=== PATIENT | female | born 2000 | race Hispanic/Latino ===

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

== ENCOUNTER 2022-04-13 18:59 | Observation (INO) | payer MEDICAID ==
[~2022-04-13] VITALS: Ht 152.4 cm; Wt 61.2 kg
[2022-04-13] MEDS ORDERED: LACTATED RINGERS 1000ML IV PRN (20:30)
[2022-04-13 20:48] LABS: APPEARANCE,URINE CLEAR (CLEAR); BILIRUBIN,URINE NEGATIVE (NEGATIVE); COLOR,URINE LIGHT-YELLOW (YELLOW); GLUCOSE, URINE (UA) NEGATIVE (NEGATIVE); KETONES,URINE NEGATIVE (NEGATIVE); LEUKOCYTE ESTERASE ,URINE 250 Leu/uL (NEGATIVE); NITRATE,URINE NEGATIVE (NEGATIVE); OCCULT BLOOD,URINE NEGATIVE (NEGATIVE); PROTEIN,URINE NEGATIVE (NEGATIVE); UROBILINOGEN,URINE 3 mg/dL (0.2-1.0)
[2022-04-13 20:59] LABS: MUCUS,URINE RARE LPF (None Seen); RBC,URINE 0-1 /HPF (0-1); SQUAMOUS EPITHELIAL CELL,UR MOD /HPF (0-2)
[2022-04-13 21:21] VITALS: BP 122/77
[2022-04-13] MEDS: LACTATED RINGERS 1000ML IV SCH (21:21)
[2022-04-13] MEDS ORDERED: ACETAMINOPHEN 500 MG TABLET ONE ×2 (21:48)
[2022-04-13] MEDS ORDERED: AZITHROMYCIN 250 MG TABLET PO ONE (22:00)
[2022-04-13] MEDS: GUAIFENESIN-CODEINE 5 ML SYRUP PO PRN (22:27)
[2022-04-13] MEDS: LACTATED RINGERS 1000ML 1,000 ML IV SCH (22:28)
[2022-04-14] MEDS ORDERED: ONDANSETRON 4MG INJ IVP PRN (01:30)
[2022-04-14] MEDS: GUAIFENESIN-CODEINE 5 ML SYRUP PO PRN (01:40)
[2022-04-14] MEDS: ACETAMINOPHEN 500 MG TABLET PO PRN ×2 (03:51→10:26)
[2022-04-14] MEDS: LACTATED RINGERS 1000ML 1,000 ML IV SCH (05:44)
[2022-04-14] MEDS ORDERED: TERBUTALINE SULFATE VIAL 1MG/ML SQ PRN (07:45)
[2022-04-14] MEDS: CELESTONE SOLUSPAN 6 MG/ML 5ML VIAL IM SCH ×3 (07:46→20:45)
[2022-04-14 08:39] LABS: BASOPHILS % (AUTO) 0.3 % (0.0-5.0); EOSINOPHILS % (AUTO) 0.9 % (0.0-8.0); HEMATOCRIT 24.4 % (36-48); LYMPHOCYTES % (AUTO) 8.8 % (21.0-51.0); MEAN CORPUSCULAR HEMOGLOBIN 24.7 pg (27.0-33.0); MEAN CORPUSCULAR HGB CONC 31.1 g/dL (32.0-36.0); MEAN CORPUSCULAR VOLUME 79.2 fL (80-100); NEUTROPHILS % (AUTO) 83.1 % (40.0-77.0); PLATELET COUNT (AUTO) 177 K/uL (130-400); RED BLOOD CELL COUNT(AUTO) 3.08 MIL/uL (4.00-5.50); RED CELL DISTRIBUTION WIDTH 18.3 % (11.0-15.5); WHITE BLOOD COUNT (AUTO) 7.5 K/uL (4.8-10.8)
[2022-04-14 08:47] LABS: CREATININE 0.6 mg/dL (0.5-1.5); POTASSIUM 3.3 mmol/L (3.5-5.1); TOTAL PROTEIN, SERUM 6.4 g/dL (6.0-8.3)
[2022-04-14] MEDS ORDERED: BENZOCAINE/MENTH/CETYLPYRD CL 1 EACH LOZENGE MM PRN (10:00)
[2022-04-14 10:18] LABS: % IRON SATURATION 6.9 % (22-44)
[2022-04-14] MEDS ORDERED: CEFTRIAXONE 1G VIAL ONE (15:29)
[2022-04-14] MEDS ORDERED: CEFTRIAXONE 1G VIAL IVP SCH (15:30)
[2022-04-14] MEDS ORDERED: MAGNESIUM 2GM PREMIX 50ML 50 ML IV PRN (15:30)
[2022-04-14] MEDS ORDERED: POTASSIUM CHLORIDE 20MEQ/100ML 100 ML IV PRN (15:30)
[2022-04-14] MEDS ORDERED: LIDOCAINE HCL-MPF 1% 2ML VIAL IV PRN (15:30)
[2022-04-14] MEDS ORDERED: KCL 20 MEQ ERTAB PO PRN (15:30)
[2022-04-14] MEDS: POTASSIUM CHLORIDE 10% ELIXIR 20 MEQ/15 ML UDCUP PO PRN ×3 (16:35→20:45)
[2022-04-14] MEDS: LACTATED RINGERS 1000ML IV SCH (17:44)
[2022-04-14] MEDS ORDERED: AZITHROMYCIN 250 MG TABLET PO SCH (22:00)
[2022-04-15 05:57] LABS: HEMATOCRIT 25.8 % (36-48); LYMPHOCYTES % (AUTO) 9.7 % (21.0-51.0); MEAN CORPUSCULAR HEMOGLOBIN 24.6 pg (27.0-33.0); MEAN CORPUSCULAR HGB CONC 30.6 g/dL (32.0-36.0); MEAN CORPUSCULAR VOLUME 80.4 fL (80-100); MONOCYTES % (AUTO) 1.1 % (3.0-13.0); NEUTROPHILS % (AUTO) 88.4 % (40.0-77.0); PLATELET COUNT (AUTO) 205 K/uL (130-400); RED BLOOD CELL COUNT(AUTO) 3.21 MIL/uL (4.00-5.50); RED CELL DISTRIBUTION WIDTH 18.7 % (11.0-15.5); WHITE BLOOD COUNT (AUTO) 8.7 K/uL (4.8-10.8)
[2022-04-15 06:26] LABS: ALBUMIN 2.3 g/dL (3.5-5.0); POTASSIUM 4.3 mmol/L (3.5-5.1); TOTAL PROTEIN, SERUM 7.1 g/dL (6.0-8.3)
[2022-04-15 06:37] LABS: CREATININE 0.5 mg/dL (0.5-1.5); MAGNESIUM 2.1 mg/dL (1.80-2.40)
[2022-04-15] MEDS ORDERED: FERROUS SULFATE 325 MG TABLET.DR PO SCH (09:00)
[2022-04-15] MEDS ORDERED: ASCORBIC ACID 500 MG TAB PO SCH (09:00)
[2022-05-10] MEDS ORDERED: FERS325 PO (18:21)
[2022-05-10] MEDS ORDERED: PREN-226 PO (18:21)
[2022-05-11] MEDS ORDERED: IBUP-2088 PO (12:09)
== END 2022-04-15 10:25 | disposition home or self-care (01) ==
LOC: EDH 18:59 → LDH 19:00
PROVIDERS: ADMIT Internal Medicine; ATTEND Internal Medicine
DX: O98.513 Other viral diseases complicating pregnancy, third trimester (principal); U07.1 COVID-19; O23.43 Unspecified infection of urinary tract in pregnancy, third trimester; O99.513 Diseases of the respiratory system complicating pregnancy, third trimester; J02.9 Acute pharyngitis, unspecified; Z3A.33 33 weeks gestation of pregnancy
CPT/HCPCS: 96361 ×5; 87088; 87880; 87804 ×2; 81001; 87635; 96372; 96365; 96375; 83540; 83550; 80053 ×2; 85025 ×2; 85378; 36415 ×2; 83735; G0378 ×39; G0379; J3475; J0702; J3105; J0696; J2405; 96360

== ENCOUNTER 2023-04-05 19:21 | Observation (INO) | payer MEDICAID ==
[~2023-04-05] VITALS: Ht 152.4 cm; Wt 61.7 kg
[~2023-04-05 19:21] MED LIST: FERS325 PO; PREN-226 PO
[2023-04-05 19:29] VITALS: BP 111/68; PULSE 90; RESP 16
[2023-04-05 20:03] LABS: ADD UA MICROSCOPIC YES; APPEARANCE,URINE CLEAR (CLEAR); BILIRUBIN,URINE NEGATIVE (NEGATIVE); COLOR,URINE YELLOW (YELLOW); GLUCOSE, URINE (UA) NEGATIVE (NEGATIVE); KETONES,URINE NEGATIVE (NEGATIVE); LEUKOCYTE ESTERASE ,URINE 250 Leu/uL (NEGATIVE); NITRATE,URINE NEGATIVE (NEGATIVE); OCCULT BLOOD,URINE NEGATIVE (NEGATIVE); PH,URINE 6.5 (5.0-8.0); PROTEIN,URINE 20 mg/dL (NEGATIVE); UROBILINOGEN,URINE 3 mg/dL (0.2-1.0)
[2023-04-05 20:05] LABS: BACTERIA,URINE RARE /HPF (None Seen); MUCUS,URINE RARE LPF (None Seen); SQUAMOUS EPITHELIAL CELL,UR FEW /HPF (0-2)
== END 2023-04-05 20:45 | disposition home or self-care (01) ==
LOC: EDH 19:21 → LDH 19:48
PROVIDERS: ADMIT Obstetrics & Gynecology; ATTEND Obstetrics & Gynecology
DX: O26.893 Other specified pregnancy related conditions, third trimester (principal); R10.9 Unspecified abdominal pain; O99.891 Other specified diseases and conditions complicating pregnancy; M54.9 Dorsalgia, unspecified; Z3A.35 35 weeks gestation of pregnancy
CPT/HCPCS: 87088; 81001; G0379; G0378

== ENCOUNTER 2024-08-11 13:25 | Emergency (ER) | payer SELFPAY ==
[~2024-08-11] VITALS: Ht 152.4 cm; Wt 59.0 kg
--- NOTE | 2024-08-11 13:37 | ERN ---
ED Note History of Present Illness Stated Complaint: SORE THROAT,MULTIPLE Chief Complaint: Headache Time Seen by MD: 13:32 Dictation: PATIENT IS A 24-YEAR-OLD FEMALE HERE WITH COMPLAINTS OF A GENERALIZED HEADACHE AND SORE THROAT WITH BODY ACHES ONSET YESTERDAY. NO FEVER NO CHILLS NO NAUSEA VOMITING. NO LOSS OF TASTE OR SMELL DOES NOT HAVE A PRIMARY CARE DOCTOR. SHE HAS NOT TAKEN ANYTHING PRIOR TO ARRIVAL FOR PAIN. Allergies: Coded Allergies: No Known Drug Allergies (Unverified Allergy, Unknown, 04/13/22) Home Meds Reported Medications Ferrous Sulfate (Ferrous Sulfate) 325 Mg (65 Mg Iron) Ectab, 325 MG PO DAILY, TAB.EC 05/10/22 Vit No.179/Iron/Folic ( Tablet) 28 Mg Iron-800 Mcg Tablet, 1 EACH PO DAILY, TAB 05/10/22 Past Medical History Past Medical History: No Pertinent History Surgical History: None Surgical History Other: LEFT LUMP REMOVED FROM BREAST 2019 : 4 Para: 3 Aborts: 0 RN Note Reviewed/Agreed w/PFSH: Yes Review of System Dictation CONSTITUTIONAL: NEGATIVE EXCEPT FOR HPI HEAD/FACE: NEGATIVE EXCEPT FOR HPI EENT: NEGATIVE EXCEPT FOR HPI SORE THROAT RESPIRATORY: NEGATIVE EXCEPT FOR HPI GASTROINTESTINAL/ABDOMINAL: NEGATIVE EXCEPT FOR HPI GENITOURINARY: NEGATIVE EXCEPT FOR HPI MUSCULOSKELETAL: NEGATIVE EXCEPT FOR HPI INTEGUMENTARY: NEGATIVE EXCEPT FOR HPI NEUROLOGICAL/PSYCH: NEGATIVE EXCEPT FOR HPI HEMATOLOGIC/LYMPHATIC: NEGATIVE EXCEPT FOR HPI ALL SYSTEMS NEGATIVE, EXCEPT NOTED ABOVE. 13 POINT REVIEW OF SYSTEMS ASSESSED AND ALL NEGATIVE EXCEPT FOR ABOVE. Initial Vital Sign VS Vital Signs Date Time Temp Pulse Resp B/P (MAP) Pulse Ox O2 Delivery O2 Flow Rate FiO2 08/11/24 13:33 98.1 86 16 119/73 97 Room Air Physical Exam Dictation VITAL SIGNS REVIEWED GENERAL APPEARANCE: ALERT, ORIENTED X 3, NO ACUTE DISTRESS, WELL DEVELOPED, NOURISHED. HEAD AND FACE: NON-TRAUMATIC. EYES: PERRL, PINK CONJUNCTIVAS, EYELID NO TRAUMA, ANTERIOR CHAMBER WITH ARCUS SENILIS. EARS: PINNAS INTACT AND NO SIGNS OF TRAUMA OR ERYTHEMA EAR CANALS CLEAR AND NO DISCHARGE TM NO ERYTHEMA NOSE: CLEAR DISCHARGE, NO BLEEDING. OROPHARYNX: MOUTH NORMAL, TONGUE PINK, PHARYNX CLEAR,NO ERYTHEMA, TONSILS NO EXUDATES, NO ABSCESSES NOTED, MUCOUS MEMBRANE MOIST NECK: SUPPLE, NON-TENDER, NO THYROMEGALY, NO MASSES, NO JVD, NO BRUITS BREAST:DEFERRED CHEST:NO TENDERNESS, NO CREPITUS, NO PARADOXICAL MOVEMENT, NO RETRACTIONS LUNGS:CLEAR, WELL-VENTILATED, SYMMETRIC, NO RALES, NO WHEEZING, NO RHONCHI, NO STRIDOR, GOOD BREATH SOUNDS BILATERALLY HEART: REGULAR RATE, REGULAR RHYTHM, NO MURMUR, NO GALLOPS VASCULAR: NO PERIPHERAL EDEMA, ABDOMEN: SOFT, POSITIVE BOWEL SOUNDS, NONDISTENDED, NO GUARDING, NONTENDER, NO REBOUND, NO MASSES NO HEPATOMEGALY, NO SPLENOMEGALY, NO LOPEZ'S SIGN, NO HERNIAS. RECTAL: DEFERRED GENITAL: DEFERRED NEUROLOGICAL: NORMAL SPEECH, MOTOR FUNCTION INTACT, SENSORY FUNCTION INTACT MUSCULOSKELETAL: NECK NONTENDER, FULL RANGE OF MOTION, BACK NONTENDER, FULL RANGE OF MOTION, EXTREMITIES: NONTENDER, FULL RANGE OF MOTION SKIN: COLOR PINK, DRY, NO TURGOR, NO RASH, NO LACERATIONS, NO ABRASIONS, NO CONTUSIONS. LYMPHATIC: DEFERRED Results (Laboratory/Radiology) Laboratory/Radiology Laboratory Tests Test 08/11/24 14:02 SARS-CoV-2 Antigen (Rapid) POSITIVE FOR SARS AG Group A Streptococcus Rapid negative (NEGATIVE) Labs Reviewed?: Yes ED Course ED Course Orders Procedure Category Date Status Time Acetaminophen 500mg PHA 08/11/24 In Process Tab (Tylenol 500mg T 14:00 Rapid (Group A Strep) LAB 08/11/24 Complete 13:35 Covid19 (Sars Antigen LAB 08/11/24 Complete Rapid) 13:35 Current Medications Medications (Trade) Dose Ordered Sig/Phil Route PRN Reason Start Time Stop Time Status Last Admin Dose Admin Acetaminophen (TYLenol 500MG TAB) 1,000 mg ONCE PO 08/11/24 14:00 08/11/24 18:00 08/11/24 14:07 Vital Signs Date Time Temp Pulse Resp B/P (MAP) Pulse Ox O2 Delivery O2 Flow Rate FiO2 08/11/24 13:33 98.1 86 16 119/73 97 Room Air Medical Decision Making MDM DISCHARGE MAKING BASED ON SWABS FOR FLU COVID AND STREP. PATIENT IS SARS COVID POSITIVE IS HER SON WHO IS WITH HER ALSO DISCHARGED HOME WITH SUPPORTIVE CARE DX & DISP Disposition: Discharge Departure Impression: Primary Impression: COVID-19 virus infection Condition: Stable Additional Instructions: FOLLOW-UP WITH PRIMARY CARE PROVIDER IN 1 TO 2 DAYS. TAKE MEDICATIONS DIRECTED HERE IN THE EMERGENCY ROOM. OKAY TO CONTINUE HOME MEDICATIONS UNLESS OTHERWISE DISCUSSED DURING YOUR VISIT IN THE EMERGENCY ROOM TODAY. RETURN TO YOUR NEAREST EMERGENCY ROOM IF SYMPTOMS WORSEN OR IF THERE IS NO IMPROVEMENT. CALL 911 IF YOU NEED IMMEDIATE ASSISTANCE. TAKE TYLENOL OR MOTRIN [id number] NEEDED AND IF NO CONTRAINDICATIONS ARE PRESENT. INCREASE ORAL HYDRATION. A WOUND CULTURE OR URINE CULTURE WAS ORDERED HERE IN THE EMERGENCY ROOM DEPARTMENT PLEASE FOLLOW-UP WITH PRIMARY CARE PROVIDER AND ADVISE THEM TO GET REPEAT PORTS FROM OUR FACILITY. IF YOU HAD ANY HENOK WRAP/SPLINTS THAT WERE APPLIED HERE, PLEASE DO NOT REMOVE THEM UNTIL YOU SEE YOUR PRIMARY CARE OR SPECIALTY. SEE YOUR PRIMARY CARE DOCTOR FOR FOLLOW UP, INCREASE YOUR FLUID INTAKE. Referrals: BENJIE DC MD (PCP) Time of Disposition: 15:16 I have reviewed the case, and I agree with, Diagnosis and Plan BETH YOUNG NP Aug 11, 2024 13:37
[2024-08-11] MEDS: acetaMINOPHEN 500 MG TABLET PO SCH (14:07)
[2024-08-11 14:30] LABS: RAPID GROUP A STREP negative (NEGATIVE)
[2024-08-11 15:12] LABS: COVID19 (SARS ANTIGEN RAPID) POSITIVE FOR SARS AG (NEGATIVE)
[2024-08-11 15:27] VITALS: BP 115/78; PULSE 85; RESP 16; TEMP 98.1; O2SAT 97
== END 2024-08-11 15:32 | disposition home or self-care (01) ==
LOC: EDH 13:25
DX: U07.1 COVID-19 (principal)
CPT/HCPCS: 87426; 87880; 99283